=== PATIENT | male | born 1990 | race American Indian/Alaskan Native ===

== ENCOUNTER 2021-10-05 09:35 | Emergency (ER) | payer SELFPAY ==
[2021-10-05 10:36] VITALS: BP 113/58
[2021-10-05] MEDS ORDERED: KETOROLAC 60 MG/2 ML INJ IM ONE (10:53)
[2021-10-05] MEDS ORDERED: ONDANSETRON 4 MG/2 ML INJ IM ONE (10:53)
--- NOTE | 2021-10-05 10:58 | Emergency Department Report ---
ED General Adult HPI - General Chief complaint: Extremity Injury, Upper Stated complaint: SICK, FEVER, VOMITTING Time Seen by Provider: 10/05/21 10:48 Source: patient Mode of arrival: Ambulatory Limitations: No Limitations - History of Present Illness Initial comments: Patient is 31 years old male with no significant past medical history except for murmur when he is kids. Patient presented to the ER complaining of generalized body ache, runny nose, congestion back pain, nausea and vomiting since last night. Patient also complaining of fever and chills. He denied any abdominal pain or diarrhea. Patient is not vaccinated against COVID-19. - Related Data Allergies Allergy/AdvReac Type Severity Reaction Status Date / Time No Known Allergies Allergy Verified 10/05/21 10:36 ED Review of Systems ROS: Stated complaint: SICK, FEVER, VOMITTING Other details as noted in HPI Comment: All other systems reviewed and negative Constitutional: chills, fever Respiratory: denies: cough, shortness of breath, SOB with exertion, SOB at rest Cardiovascular: denies: chest pain, palpitations Gastrointestinal: nausea, vomiting. denies: abdominal pain, diarrhea, constipation, hematemesis, hematochezia Musculoskeletal: back pain, arthralgia, myalgia Neurological: denies: headache, weakness, numbness, paresthesias, confusion ED Physical Exam - General Limitations: No Limitations General appearance: alert, in no apparent distress - Head Head exam: Present: atraumatic, normocephalic, normal inspection - Eye Eye exam: Present: normal appearance - ENT ENT exam: Present: normal exam, normal orophraynx, mucous membranes moist - Neck Neck exam: Present: normal inspection, full ROM. Absent: tenderness, meningismus - Respiratory Respiratory exam: Present: normal lung sounds bilaterally - Cardiovascular Cardiovascular Exam: Present: regular rate, normal rhythm, normal heart sounds - GI/Abdominal GI/Abdominal exam: Present: soft, normal bowel sounds. Absent: distended, tenderness, guarding, rebound, rigid, organomegaly, mass, bruit, pulsatile mass, hernia - Extremities Exam Extremities exam: Present: normal inspection, full ROM, normal capillary refill. Absent: tenderness - Back Exam Back exam: Present: normal inspection, full ROM. Absent: CVA tenderness (R), CVA tenderness (L) - Neurological Exam Neurological exam: Present: alert, oriented X3, CN II-XII intact, normal gait, reflexes normal. Absent: motor sensory deficit - Psychiatric Psychiatric exam: Present: normal mood - Skin Skin exam: Present: warm, intact, normal color ED Course Vital Signs 10/05/21 10:35 Temperature 99.7 F H Pulse Rate 125 H Respiratory 20 Rate Blood Pressure 113/58 [Left] O2 Sat by Pulse 99 Oximetry ED Medical Decision Making - Medical Decision Making Patient is 31 years old male with no significant past medical history except for murmur when he is kids. Patient presented to the ER complaining of generalized body ache, runny nose, congestion back pain, nausea and vomiting since last night. Patient also complaining of fever and chills. He denied any abdominal pain or diarrhea. Patient is not vaccinated against COVID-19. Patient symptoms is most likely related to viral syndrome. Most likely COVID- 19. Patient received Zofran and Toradol injection with improvement in his symptoms. Patient also given prescription for Zofran and advised to follow-up with his primary doctor in the next 2 to 3 days and to return to the ER if he develop any new symptoms. Patient also advised to get tested for COVID-19. Critical care attestation.: If time is entered above; I have spent that time in minutes in the direct care of this critically ill patient, excluding procedure time. ED Disposition Clinical Impression: Acute nausea with nonbilious vomiting, Viral syndrome, Suspected COVID-19 virus infection Disposition: HOME / SELF CARE / HOMELESS Is pt being admited?: No Condition: Stable Instructions: Nausea and Vomiting, Adult, [id number], Viral Illness, Adult, Prevent the Spread of COVID-19 if You Are Sick - [facility] Referrals: PRIMARY CARE, [Primary Care Provider] - 3-5 Days
== END 2021-10-05 11:27 | disposition home or self-care (01) ==
LOC: ED 09:35
DX: B34.9 Viral infection, unspecified (principal); R11.2 Nausea with vomiting, unspecified; Z20.822 Contact with and (suspected) exposure to COVID-19
CPT/HCPCS: 96372; 99282; J1885; J2405